=== PATIENT | male | born 1960 | race African-American/Black ===

== ENCOUNTER 2019-07-21 17:39 | Emergency (ER) | payer OTHER ==
[~2019-07-21] VITALS: Ht 185.4 cm; Wt 104.3 kg
[2019-07-21 18:07] VITALS: BP 155/95
--- NOTE | 2019-07-21 18:17 | PHYS DOC ---
Past Medical History Past Medical History: No Pertinent History Past Surgical History: No Surgical History Alcohol Use: None Drug Use: None Adult General Chief Complaint Chief Complaint: INSECT BITE HPI HPI Patient is a 58 year old male that presents with an abscess to the left knee. The patient states that it started on Wednesday and been draining it daily. Patient states "I am Gonzalo, and I have been draining and pushing it out everyday", patient then pulls a exudate filled Kleenex out of his front left pocket. He denies any pain. Has not been taking medication for the pain. Review of Systems Review of Systems Constitutional: Denies fever or chills [] Eyes: Denies change in visual acuity, redness, or eye pain [] HENT: Denies nasal congestion or sore throat [] Respiratory: Denies cough or shortness of breath [] Cardiovascular: No additional information not addressed in HPI [] GI: Denies abdominal pain, nausea, vomiting, bloody stools or diarrhea [] : Denies dysuria or hematuria [] Musculoskeletal: Denies back pain or joint pain [] Integument: Reports abscess to L knee. Neurologic: Denies headache, focal weakness or sensory changes [] Endocrine: Denies polyuria or polydipsia [] Complete systems were reviewed and found to be within normal limits, except as documented in this note. Allergies Allergies Allergies Coded Allergies Type Severity Reaction Last Updated Verified No Known Drug Allergies 09/12/15 No Physical Exam Physical Exam Constitutional: Well developed, well nourished, no acute distress, non-toxic appearance. [] HENT: Normocephalic, atraumatic, bilateral external ears normal, oropharynx moist, no oral exudates, nose normal. [] Eyes: PERRLA, EOMI, conjunctiva normal, no discharge. [] Neck: Normal range of motion, no tenderness, supple, no stridor. [] Cardiovascular:Heart rate regular rhythm, no murmur [] Lungs & Thorax: Bilateral breath sounds clear to auscultation [] Abdomen: Bowel sounds normal, soft, no tenderness, no masses, no pulsatile mukul s. [] Skin: Abscess to L knee with fluctuance. Back: No tenderness, no CVA tenderness. [] Extremities: No tenderness, no cyanosis, no clubbing, ROM intact, no edema. [] Neurologic: Alert and oriented X 3, normal motor function, normal sensory function, no focal deficits noted. [] Psychologic: Affect normal, judgement normal, mood normal. [] Current Patient Data Vital Signs Vital Signs Date Time Temp Pulse Resp B/P (MAP) Pulse Ox O2 Delivery O2 Flow Rate FiO2 07/21/19 18:07 98.8 100 20 155/95 (115) 96 Room Air 98.8 EKG EKG [] Radiology/Procedures Radiology/Procedures Indication: abscess Procedure: The patient was positioned appropriately. Local anesthesia was declined by patient. An incision was then made over the apex of the lesion and exudate material was expressed. The drainage cavity was irrigated and packed with sterile gauze. The patient�s tetanus status updated as needed. The patient tolerated the procedure well. Complications: none.[] Course & Med Decision Making Course & Med Decision Making Pertinent Labs and Imaging studies reviewed. (See chart for details) I will perform an I&D on the abscess. The patient states that he does not want any local anesthetic. Will drain and then discharge home with antibiotic. Dragon Disclaimer Dragon Disclaimer This electronic medical record was generated, in whole or in part, using a voice recognition dictation system. Departure Departure Impression: Primary Impression: Abscess or cellulitis of knee Disposition: 01 HOME, SELF-CARE Condition: STABLE Referrals: KAREL VELASQUEZ MD (PCP) Patient Instructions: Abscess, Abscess, Care After Additional Instructions: Thank you for visiting [facility]. We appreciate you trusting us with your care. If any additional problems come up don't hesitate to return to visit us. Please follow up with your primary care provider so they can plan additional care if needed and know about the problem that you had. If symptoms worsen come back to the Emergency Department. Any concerning symptoms that start such as chest pain, shortness of air, weakness or numbness on one side of the body, running high fevers or any other concerning symptoms return to the ER. Please come back to ER or go to primary care doctor in two days to have wound check and packing removed. You have been prescribed an antibiotic today to help fight your infection. Please take all of the antibiotic as directed. If after 48 hours the infection is not improving, please return for more care. If the infection worsens, return to ER for additional care. Scripts Cephalexin (KEFLEX) 500 Mg Capsule 1 CAP PO BID for 7 Days, #14 CAP Prov: DELANO RODRIGUEZ APRN 07/21/19 DELANO RODRIGUEZ APRN Jul 21, 2019 18:17
[2019-07-21] MEDS ORDERED: CEPH-264 PO (19:02)
== END 2019-07-21 19:12 | disposition home or self-care (01) ==
LOC: ER 17:39
DX: L02.416 Cutaneous abscess of left lower limb (principal); L03.116 Cellulitis of left lower limb
CPT/HCPCS: 10060; 99283

== ENCOUNTER 2019-07-23 11:02 | Emergency (ER) | payer OTHER ==
[~2019-07-23] VITALS: Ht 185.4 cm; Wt 104.3 kg
[~2019-07-23 11:02] MED LIST: CEPH-264 PO
[2019-07-23 12:00] VITALS: BP 148/81
--- NOTE | 2019-07-23 12:20 | PHYS DOC ---
Past Medical History Past Medical History: No Pertinent History Past Surgical History: No Surgical History Alcohol Use: None Drug Use: None Adult General Chief Complaint Chief Complaint: WOUND RECHECK/SUTURE REMOVAL [facility] HPI Patient is a 58 year old male presents with wound check. Patient was seen by this provider 2 days ago incision drainage performed on his left knee. Packing was placed and patient is calm to have the packing changed out. The knee is imp roving and the patient started his antibiotics 2 days ago. Denies any pain, and states that there are no new complaints. Review of Systems Review of Systems Constitutional: Denies fever or chills [] Eyes: Denies change in visual acuity, redness, or eye pain [] HENT: Denies nasal congestion or sore throat [] Respiratory: Denies cough or shortness of breath [] Cardiovascular: No additional information not addressed in HPI [] GI: Denies abdominal pain, nausea, vomiting, bloody stools or diarrhea [] : Denies dysuria or hematuria [] Musculoskeletal: Denies back pain or joint pain [] Integument: Reports wound to L knee. Neurologic: Denies headache, focal weakness or sensory changes [] Endocrine: Denies polyuria or polydipsia [] Complete systems were reviewed and found to be within normal limits, except as documented in this note. Allergies Allergies Allergies Coded Allergies Type Severity Reaction Last Updated Verified No Known Drug Allergies 09/12/15 No Physical Exam Physical Exam Constitutional: Well developed, well nourished, no acute distress, non-toxic appearance. [] HENT: Normocephalic, atraumatic, bilateral external ears normal, oropharynx moist, no oral exudates, nose normal. [] Eyes: PERRLA, EOMI, conjunctiva normal, no discharge. [] Neck: Normal range of motion, no tenderness, supple, no stridor. [] Cardiovascular:Heart rate regular rhythm, no murmur [] Lungs & Thorax: Bilateral breath sounds clear to auscultation [] Abdomen: Bowel sounds normal, soft, no tenderness, no masses, no pulsatile masses. [] Skin: Abscess to left knee erythema has reduced since Wednesday, wound is draining. Back: No tenderness, no CVA tenderness. [] Extremities: No tenderness, no cyanosis, no clubbing, ROM intact, no edema. [] Neurologic: Alert and oriented X 3, normal motor function, normal sensory function, no focal deficits noted. [] Psychologic: Affect normal, judgement normal, mood normal. [] EKG EKG [] Radiology/Procedures Radiology/Procedures Removed the old packing and placed 1/2 inch iodoform. Course & Med Decision Making Course & Med Decision Making Pertinent Labs and Imaging studies reviewed. (See chart for details) Will give Tetanus shot, and remove the old packing and repack wound. Dragon Disclaimer Dragon Disclaimer This electronic medical record was generated, in whole or in part, using a voice recognition dictation system. Departure Departure Impression: Primary Impression: Abscess or cellulitis of knee Disposition: HOME, SELF-CARE Condition: STABLE Referrals: KAREL VELASQUEZ MD (PCP) Patient Instructions: Abscess, Abscess, Care After Additional Instructions: Thank you for visiting . We appreciate you trusting us with your care. If any additional problems come up [facility]'t hesitate [facility] Please follow up with your primary care provider so they can plan additional care if needed and know about the problem that you had. If symptoms worsen come back to the Emergency Department. Any concerning symptoms that start such as chest pain, shortness of air, weakness or numbness on one side of the body, running high fevers or any other concerning symptoms return to the ER. Please continue to take antibiotics as directed. Continue wound care as instructed in last visit. Return to ER or go to primary care doctor in 2 days for wound check and packing to be removed. DELANO RODRIGUEZ APRN Jul 23, 2019 12:20
[2019-07-23] MEDS ORDERED: DIPHTH,PERTUSS(ACELL),TET TOX 0.5 ML DISP.SYRIN. VAX IM ONE (12:30)
== END 2019-07-23 12:47 | disposition home or self-care (01) ==
LOC: ER 11:02
DX: L02.416 Cutaneous abscess of left lower limb (principal); L03.116 Cellulitis of left lower limb
CPT/HCPCS: 90471; 90715; 99283